=== PATIENT | male | born 1990 | race Caucasian/White ===

== ENCOUNTER 2021-11-30 09:05 | Emergency (ER) | payer OTHER, SELFPAY ==
[2021-11-30 09:12] VITALS: BP 122/71; PULSE 86; RESP 14; TEMP 36.8; O2SAT 96; BMI 31.0
--- NOTE | 2021-11-30 09:16 | ED.GENADULT ---
HPI - General Adult General Chief complaint: Upper Respiratory Symptoms Stated complaint: Chills, headache, body aches, cough. Exposure Time Seen by Provider: 11/30/21 09:16 History of Present Illness HPI narrative: 31-year-old gentleman with no significant medical issues exposed to a COVID on November 24. He has 2 vaccinations but has not been boosted. Over the last 48 hours he has had increasing sore throat, fever slight cough. No change to smell or taste. No nausea vomiting diarrhea, abdominal pain, chest pain, palpitations. He does note some sinus fullness and headache and has been using both ibuprofen and Tylenol with success. Related Data Home Medications Medication Instructions Recorded Confirmed terbinafine HCl 250 mg tablet 250 mg PO #0 11/15/17 (Lamisil) Previous Rx's Medication Instructions Recorded lorazepam 1 mg tablet (Ativan) 1 mg PO BIDP PRN #6 tab 11/15/17 Allergies Allergy/AdvReac Type Severity Reaction Status Date / Time No Known Drug Allergies Allergy Verified 11/30/21 09:18 Review of Systems Review of Systems Narrative: Remainder of complete review of systems is otherwise unremarkable except for that included in the HPI. Patient History Social History Smoking Status: Former smoker Exam Narrative Exam Narrative: General: Healthy appearing, in no acute distress. Able to give a complete and coherent history. Well-nourished well-developed HEENT: Moist mucous membranes, normal sclera with reactive pupils, Respiratory: Lungs are clear to auscultation, no wheezing no rales no rhonchi. Full and symmetrical air movement Cardiac: Regular rate and rhythm no murmurs no bruits Abdomen: Soft, nontender, good bowel tones, no flank pain Skin: Warm and dry, no rashes Neurologic: Grossly neurologically intact with no obvious asymmetries or abnormalities Extremities: No trauma, well perfused Psych: Cooperative, appropriate insight and affect Initial Vital Signs Initial Vital Signs: Vital Signs Temperature 98.2 F 11/30/21 09:12 Pulse Rate 86 11/30/21 09:12 Respiratory Rate 14 11/30/21 09:12 Blood Pressure 122/71 11/30/21 09:12 Pulse Oximetry 96 11/30/21 09:12 Course Orders Ordered: ED Orders 11/30/21 09:14 COVID19 -Nasal swab/Pre-Proc Stat Discontinued Medications Acetaminophen (Acetaminophen 325 Mg Tablet) 325 mg PO NOW ONE Stop: 11/30/21 09:40 Last Admin: 11/30/21 09:42 Dose: 325 mg Documented by: Benzonatate (Benzonatate 100 Mg Capsule) 100 mg PO NOW ONE Stop: 11/30/21 09:40 Last Admin: 11/30/21 09:42 Dose: 100 mg Documented by: Ibuprofen (Ibuprofen 400 Mg Tablet) 400 mg PO NOW ONE Stop: 11/30/21 09:40 Last Admin: 11/30/21 09:42 Dose: 400 mg Documented by: Vital Signs Vital signs: Vital Signs - 8 hr 11/30/21 09:12 Temperature 98.2 F Pulse Rate 86 Respiratory Rate 14 Blood Pressure 122/71 Pulse Oximetry 96 Medical Decision Making Lab Data Labs: Lab Results 11/30/21 Range/Units 09:14 SARS-CoV-2 (PCR) Negative (Negative) MDM Narrative Medical decision making narrative: 31-year-old gentleman with 2 COVID vaccines 48 hours of upper respiratory symptoms with COVID exposure over [place]. COVID test, PCR, is negative today. Reviewed symptomatic management for upper respiratory infection. He is safe for home discharge Discharge Plan Departure Patient Disposition: Home Clinical Impression: Upper respiratory infection Instructions: DI for Viral Upper Respiratory Infection -- Adult Activity Restrictions/Additional Instructions: Thank you for coming in today Your COVID test, a PCR test, was negative today Thank you for being vaccinated Using 400 mg of ibuprofen (2 [id number] pills) and 1 Tylenol every 6 hours can be very helpful in controlling pain. If you find that symptoms are getting worse, please feel free to return to the emergency department. I wish you the best Prescriptions: No Action terbinafine HCl [Lamisil] 250 MG tablet 250 mg PO Qty: 0 0RF lorazepam [Ativan] 1 MG tablet 1 mg PO BIDP PRNQty: 6 0RF
[2021-11-30 09:38] LABS: COVID19 -Nasal RAPID Negative (Negative)
[2021-11-30] MEDS: BENZONATATE 100 MG CAPSULE PO (09:42)
[2021-11-30] MEDS: ACETAMINOPHEN 325 MG TABLET PO (09:42)
[2021-11-30] MEDS: IBUPROFEN 400 MG TABLET PO (09:42)
[2021-11-30 10:26] VITALS: BP 130/70; PULSE 80; RESP 18; O2SAT 99
== END 2021-11-30 10:27 | disposition home or self-care (01) ==
PROVIDERS: Emergency Provider Emergency Medicine
DX: J06.9 Acute upper respiratory infection, unspecified (principal); Z87.891 Personal history of nicotine dependence; Z20.822 Contact with and (suspected) exposure to COVID-19
CPT/HCPCS: 87635; 99283; C9803

== ENCOUNTER 2024-03-29 08:53 | Emergency (ER) | payer OTHER, SELFPAY ==
[2024-03-29 08:57] VITALS: BP 139/76; PULSE 64; RESP 18; TEMP 36.6; O2SAT 99; BMI 29.5
--- NOTE | 2024-03-29 09:01 | DI.RAD.S_ITS ---
PROCEDURE: XR RIBS RT MIN 3V W CXR 1V INDICATIONS: fall heard crack TECHNIQUE: 3 views of the ribs were acquired, along with a single view chest. COMPARISON: [facility], , CHEST 2 VIEW, 11/15/2017, 20:15. FINDINGS: Surgical changes and devices: None. Bones and chest wall: A marker is placed upon the area of clinical concern. Within this region, no displaced rib fracture or other significant rib abnormality can be seen. No rib fractures are seen elsewhere. No suspicious bony lesions. Overlying soft tissues appear unremarkable. Lungs and pleura: No pleural effusions or pneumothorax. Lungs appear clear. Mediastinum: Mediastinal contours appear normal. Heart size is normal. IMPRESSION: No displaced rib fracture or pneumothorax. Dictated by: Jared Cain M.D. on 03/29/2024 at 8:36 Approved by: Jared Cain M.D. on 03/29/2024 at 8:37
--- NOTE | 2024-03-29 10:03 | ED.FALL ---
HPI - Fall General Chief Complaint: Fall Stated Complaint: R rib pain/ T-0/ painful Time Seen by Provider: 03/29/24 09:07 Source: patient Mode of arrival: Ambulatory Limitations: no limitations History of Present Illness HPI Narrative: 33-year-old male former smoker presents with concern for right rib fracture. Patient was walking his dog earlier today when he slipped fell backwards onto his right posterior ribs. Patient states his back or vertebrae does not hurt. He states did not hit his head. He denies any neck pain. Pain on his right lateral ribs particularly at the T for range. Patient has increased pain with movement, cough and deep inhalation. Patient does not appreciate any bruising or skin changes. Denies any other injuries. Patient states no anticoagulation he states no daily prescription medications. He did take a dose of Tylenol before coming into the department and states it is helped somewhat. Denies any prior surgeries. Former smoker, alcohol twice weekly, no recreational drugs. Related Data Home Medications Medication Instructions Recorded Confirmed terbinafine HCl 250 mg tablet 250 mg PO ##0 11/15/17 (Lamisil) Previous Rx's Medication Instructions Recorded lorazepam 1 mg tablet (Ativan) 1 mg PO BIDP PRN #6 tabs 11/15/17 tramadol 50 mg tablet 50 mg PO Q6H PRN pain #10 tabs 03/29/24 Allergies Allergy/AdvReac Type Severity Reaction Status Date / Time No Known Drug Allergies Allergy Verified 11/30/21 09:18 Review of Systems Review of Systems ROS Unobtainable: All systems reviewed & are unremarkable except as noted in HPI and below Patient History Social History Smoking Status: Former smoker Smoking Status: Former smoker alcohol intake frequency: a few times a week Substance Use Type: does not use Exam Narrative Exam Narrative: GEN: Patient appears in moderate distress. HEAD: No evidence of trauma, no raccoon/Mathur sign. NECK: Nontender, painless range of motion, trachea midline [Negative/positive] Nexus criteria, no midline line tenderness, distracting injury, altered mental status, neuro deficit, recent EtOH. EYES: PERRLA, EOMI ENT: External inspection normal, trachea is midline, no hemotypanum, Nares are clear, no septal hematoma, no dental or oral injury, airway is normal and with normal occlusion, No bony tenderness RESP: Chest patient has tenderness over the right 4th lateral rib, no ecchymosis, no crepitus, no displacement appreciated, and has symmetric movement, no ecchymosis, breath sounds are normal no crackles, wheezes or rales CVS: Heart sounds are normal, no murmur noted, No JVD. ABG/GI: Nontender, soft, normal bowel sounds, no distention, no organomegaly, pelvic rock is negative NEURO: Oriented AOx3, neuro is grossly intact, sensation and motor is normal all 4 extremities moving, cranial nerves II through XII are intact, GCS is 15 PSYCH: Normal mood and affect SKIN: Intact, warm and dry, no crepitus and without decubitus BACK: No CVA tenderness, no vertebral tenderness, no step-off's, no crepitus EXT: Atraumatic, hips are nontender, normal range of motion of extremities with normal tendon exam. Initial Vital Signs Initial Vital Signs: Vital Signs Temperature 97.8 F 03/29/24 08:57 Pulse Rate 64 03/29/24 08:57 Respiratory Rate 18 03/29/24 08:57 Blood Pressure 139/76 03/29/24 08:57 Pulse Oximetry 99 03/29/24 08:57 Oxygen Delivery Method Room Air 03/29/24 08:57 Course Orders Ordered: ED Orders 03/29/24 09:01 XR ribs RT min 3V w CXR1V Stat Vital Signs Vital signs: Vital Signs - 8 hr 03/29/24 08:57 Temperature 97.8 F Pulse Rate 64 Respiratory Rate 18 Blood Pressure 139/76 Pulse Oximetry 99 Oxygen Delivery Method Room Air MDM - Fall Imaging Data Chest x-ray: Radiologist's Impression: [address] [address] XRay Report Signed Patient: Charles Boyce MR#: [id number] : 1990 Acct:[id number] Age/Sex: 33 / M Date of Service: 03/29/24 Loc: ED Accession Number: [id number] Procedure: XR ribs RT min 3V w CXR1V Ordering Provider: Elsa Block D.O. PROCEDURE: XR RIBS RT MIN 3V W CXR 1V INDICATIONS: fall heard crack TECHNIQUE: 3 views of the ribs were acquired, along with a single view chest. COMPARISON: [facility], , CHEST 2 VIEW, 11/15/2017, 20:15. FINDINGS: Surgical changes and devices: None. Bones and chest wall: A marker is placed upon the area of clinical concern. Within this region, no displaced rib fracture or other significant rib abnormality can be seen. No rib fractures are seen elsewhere. No suspicious bony lesions. Overlying soft tissues appear unremarkable. Lungs and pleura: No pleural effusions or pneumothorax. Lungs appear clear. Mediastinum: Mediastinal contours appear normal. Heart size is normal. IMPRESSION: No displaced rib fracture or pneumothorax. Dictated by: Jared Cain M.D. on 03/29/2024 at 8:36 Approved by: Jared Cain M.D. on 03/29/2024 at 8:37 MDM Narrative Medical decision making narrative: Patient has over her right lateral ribs, fairly localized, patient's x-ray does not show any obvious displaced rib fractures, no pneumothorax or other changes. He does not have any midline tenderness. Plan for Tylenol/ibuprofen with PRN narcotic pain medication. Patient and I discussed signs and symptoms to watch for reasons to return. 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 This was provided. Discharge Plan Departure Patient Disposition: Home Clinical Impression: Contusion of rib on right side Activity Restrictions/Additional Instructions: Follow up with your primary care physician for recheck as needed. You may take Tylenol up to a 1000 mg every 6 hours and/or ibuprofen up to 600 mg every 6 hours as needed. You may take tramadol 1-2 tablets every 6 hours as needed. This medication can make you sleepy do not drive, perform hazardous activities or make any major decisions while taking it. This medication will make you constipated please take a stool softener once to twice daily until stools are soft and regular. Prescription sent to [facility] in [place] Please return for rapidly worsening symptoms, new shortness of breath, coughing up blood, lightheadedness or passing out, increasing bruising or skin changes or other new or concerning changes. Prescriptions: New tramadol 50 mg tablet 50 mg PO Q6H PRN (Reason: pain) Qty: 10 0RF No Action terbinafine HCl [Lamisil] 250 MG tablet 250 mg PO Qty: 0 lorazepam [Ativan] 1 MG tablet 1 mg PO BIDP PRNQty: 6 0RF Referrals: *Temp,ED* [Primary Care Provider] - Stand Alone Forms: Patient Portal/API
== END 2024-03-29 10:24 | disposition home or self-care (01) ==
PROVIDERS: Emergency Provider Emergency Medicine
DX: S20.20XA Contusion of thorax, unspecified, initial encounter (principal); W01.0XXA Fall on same level from slipping, tripping and stumbling without subsequent striking against object, initial encounter; Y93.K1 Activity, walking an animal
CPT/HCPCS: 71101; 99283